=== PATIENT | male | born 1995 ===

== ENCOUNTER 2021-12-18 08:53 | Outpatient (CLI) | payer OTHER | END 2021-12-18 13:19 | disposition home or self-care (01) | LOC: LAB 08:53 | PROVIDERS: ATTEND Family Medicine | DX: D64.9 Anemia, unspecified (principal); I10 Essential (primary) hypertension; E03.9 Hypothyroidism, unspecified; N39.0 Urinary tract infection, site not specified ==

== ENCOUNTER 2022-07-01 09:32 | Emergency (ER) | payer OTHER ==
[~2022-07-01] VITALS: Ht 175.3 cm; Wt 83.9 kg
[2022-07-01] MEDS ORDERED: CIPRO500 MG PO (16:07)
[2022-07-01] MEDS ORDERED: KETO10TA2 PO (16:07)
[2022-07-01] MEDS ORDERED: TAMS0.4C PO (16:07)
== END 2022-07-01 16:27 | disposition home or self-care (01) ==
LOC: ER 09:32
DX: N20.1 Calculus of ureter (principal)

== ENCOUNTER 2023-10-06 11:11 | Outpatient (CLI) | payer OTHER ==
[~2023-10-06 11:11] MED LIST: CIPRO500 MG PO; KETO10TA2 PO; TAMS0.4C PO
== END 2023-10-06 11:26 | disposition home or self-care (01) ==
LOC: RAD 11:11
PROVIDERS: ATTEND Urology
DX: N43.40 Spermatocele of epididymis, unspecified (principal); N20.0 Calculus of kidney